=== PATIENT | female | born 1990 | race Caucasian/White ===

== ENCOUNTER 2017-03-16 14:32 | Emergency (ER) | payer SELFPAY ==
[~2017-03-16] VITALS: Ht 175.3 cm; Wt 105.9 kg
[~2017-03-16 14:32] MED LIST: BECL8.7A5 INH; CITA20TA11 PO; LISI10TA2 PO; NORE-96 PO
[2017-03-16 14:35] VITALS: BP 149/95; PULSE 80; RESP 16; O2SAT 100
--- NOTE | 2017-03-16 15:24 | ED.REPORT ---
HPI-Dyspnea / Wheezing Date of Service Mar 16, 2017 ED Provider: Abelardo Ariza MD A 26 year old female with a history of asthma and hypertension presents to the ED with dyspnea that began this afternoon. The patient believes that she is experiencing an asthma attack because her previous episodes have presented with similar SOB and wheezing. She believes her attack is due to the recent smoke in the air. The patient used her albuterol inhaler 4 times today. Last use was at 1430 this afternoon. She denies any cough, fever, nausea or vomiting. Nursing Notes Stated Complaint: ASTHMA ATTACK Chief Complaint: Respiratory Complaints Nursing Notes Reviewed: Yes Allergies: Coded Allergies: codeine (Verified Adverse Reaction, Intermediate, N/V, 12/13/15) amoxicillin (Verified Adverse Reaction, Unknown, VOMITING, DIARRHEA, ) Scheduled Beclomethasone Dipropionate (Qvar) 8.7 Gm Aer.w.adap 2 PUFF INH BID Citalopram (Citalopram) 20 Mg Tablet 20 MG PO DAILY Lisinopril (Lisinopril) 10 Mg Tablet 20 MG PO DAILY Norethindrone A-E Estradiol (Loestrin) 1 Each Tablet 1 EACH PO DAILY Prednisone (PredniSONE) 20 Mg Tablet 60 MG PO DAILY General Time Seen by MD: 15:21 Chief Complaint Asthma attack Hx Obtained From: Patient Arrived By: Walk-in Sudden in Onset?: Yes Onset Occurred: 1 - 4 hours ago Context of Onset: Asthma attack Symptom Duration: Since onset Location: : None Associated with: Reports: Wheeze, Denies: Cough, Fever, Nausea, Vomiting Pertinent Negative: Pt denies other symptoms Recent Healthcare: No recent doctor visit, No recent hospitalization Past Medical History Past Medical History 1. Depression 2. Asthma 3. Hypertension 4. Migraines Past Surgical History IUD removal Family History Multiple family members with fibromuscular dysplasia. Both of patient's siblings and parents have a longstanding history of headaches. Smoking History Former Smoker Social History Alcohol Use: "Social" Drug Use: THC Other Social History: Good social support, , Local resident Occupation lives with boyfriend Ambulatory Status Independent Review of Systems Constitutional: Denies: Fever Respiratory: Reports: Shortness of breath, Wheezing, Denies: Non-productive cough Complete sys rev & neg: except as marked. Physical Exam Initial Vital Signs Vital Signs (First) Date Time Temp Pulse Resp B/P Pulse Ox O2 Delivery O2 Flow Rate FiO2 03/16/17 14:35 36.6 80 16 149/95 100 Room Air Initial VS: Reviewed Head / Eyes: Atraumatic, Normocephalic, PERRL Extremities: Vascular intact, Neuro intact, No swelling, No tenderness Skin: Warm, Dry, No cyanosis Neurologic: Alert, Oriented, Nonfocal Psychiatric: Mood/affect normal, Behavior normal, Normal thought content General/Constitutional: Awake, Alert, No acute distress, Well appearing, Well developed Neck: Atraumatic, Supple, Full range of motion Respiratory / Chest: Atraumatic, Breath sounds NL, Breath sounds = bilat, No respiratory distress, No rales, No rhonchi, No wheezing No increased work of breathing Cardiovascular: Heart rate NL, Regular rhythm, Heart sounds NL ENT: Atraumatic, Airway patent, Mucous membranes moist, Pharynx NL Abdomen: Atraumatic, Soft, Non-tender, BS normoactive, No distention Interpretation & Diagnostics X-Ray Chest Interpretation Chest Xray Interpretation: IMPRESSION: No acute cardiopulmonary disease process. Dictated by: Amira Weaver MD, PhD on 03/16/2017 at 16:51 Interpretation / Wet Read by: Interpret - Radiologist Re-Eval/Medical Decision Med Decision/Clinical Course 26-year-old female history of asthma presenting complaining of dyspnea for several days. She reports this developed since the smoke. Her lungs are clear. She felt better after a DuoNeb. She was given 1 dose of steroids. Chest x-ray is clear. Her vital signs are stable. She is discharged with a 5 day course of prednisone. Return precautions given. Re-Evaluation/Progress #1: Time of Eval: 15:30 Re-Evaluation/Progress Note: Respiratory therapy is called per patient request. Re-Evaluation/Progress #2: Time of Eval: 15:50 )( Re-Eval Resp / Chest: Breath sounds normal Treatment Summary: Albuterol nebulizer x 2 Patient Status: Condition improved Re-Evaluation/Progress Note: The patient's breathing has improved upon recheck.The patient understands and agrees with the intended treatment plan. Counseled Regarding: Diagnosis, Need for follow-up, When/why to return to ED Discharge & Departure Impression: Primary Impression: Exacerbation of asthma Disposition: Home Discharge Condition All VS Reviewed: Yes Condition: Improved Patient Instructions: Asthma (ED) Additional Instructions: Thank you for trusting us with your care this afternoon. Your emergency department evaluation today including examination and chest X- ray are reassuring that there is no dangerous cause for concern at this time and your symptoms are likely due exacerbation of your asthma. Take prednisone for the next 5 days as directed to help improve your breathing. Please schedule a follow-up appointment with your primary care physician in the 2-3 days for a recheck. Please return to the emergency department for any new or worsening conditions including any high fevers, nausea, vomiting, chest pain, shortness or breath, lightheadedness or weakness. Referrals: Farrah Preciado (PCP) Scribe Attestation Portions of this note were transcribed by [place]. I, Dr. Ariza personally performed the history, physical exam and medical decision-making; I reviewed and confirmed the accuracy of the information in the transcribed note. copies to: Farrah Preciado Ben M MD Mar 16, 2017 15:24 [place] Mar 16, 2017 15:32
[2017-03-16] MEDS ORDERED: Albuterol-Ipratropium 3 mL Inhalation Solution NEB ONE (15:30)
[2017-03-16] MEDS ORDERED: predniSONE 20 mg Tablet PO ONE (15:30)
[2017-03-16 15:40] VITALS: PULSE 66; RESP 20; O2SAT 98
[2017-03-16] MEDS ORDERED: PRE20 PO (15:48)
[2017-03-16 16:39] VITALS: BP 135/87; PULSE 70; RESP 20; O2SAT 98
--- NOTE | 2017-03-16 16:53 | DRSVH ---
PROCEDURE: X-RAY CHEST ONE VIEW, PORTABLE ([id number]) INDICATIONS: dyspnea TECHNIQUE: One view of the chest was acquired. COMPARISON: None. FINDINGS: Surgical changes and devices: None. Lungs and pleura: No pleural effusions or pneumothorax. Lungs are clear. Mediastinum: Mediastinal contours appear normal. Heart size is normal. Bones and chest wall: No suspicious bony lesions. Overlying soft tissues appear unremarkable. IMPRESSION: No acute cardiopulmonary disease process. Dictated by: Amira Weaver MD, PhD on 03/16/2017 at 16:51 Approved by: Amira Weaver MD, PhD on 03/16/2017 at 16:51
== END 2017-03-16 16:39 | disposition home or self-care (01) ==
LOC: SED 14:32
DX: J45.901 Unspecified asthma with (acute) exacerbation (principal); I10 Essential (primary) hypertension; F32.9 Major depressive disorder, single episode, unspecified; Z87.891 Personal history of nicotine dependence; Z88.5 Allergy status to narcotic agent; Z88.1 Allergy status to other antibiotic agents
CPT/HCPCS: 71010; 94664; 99284; J7620